=== PATIENT | female | born 1975 | race Caucasian/White ===

== ENCOUNTER 2023-11-15 13:52 | Inpatient (IN) ==
[2023-11-15 14:54] LABS: Basophils # (auto) 0.03 K/uL (0.00-0.20); Basophils % (auto) 0.4 %; Eosinophils # (auto) 0.05 K/uL (0.00-0.50); Eosinophils % (auto) 0.6 %; Hematocrit (blood only) 40.7 % (37.0-47.0); Hemoglobin 13.3 g/dl (12.0-16.0); Immature Granulocytes # (auto) 0.04 K/uL (0.01-0.20); Immature Granulocytes % (auto) 0.5 %; Lymphocytes # (auto) 1.21 K/uL (1.20-3.40); Lymphocytes % (auto) 14.8 %; Mean Corpuscular Hemoglobin 27.9 pg (25.0-34.0); Mean Corpuscular Hgb Conc 32.7 g/dL (32.0-36.0); Mean Corpuscular Volume 85.5 fL (80.0-100.0); Mean Platelet Volume 10.2 fL (9.4-12.4); Monocytes # (auto) 0.46 K/uL (0.11-0.59); Monocytes % (auto) 5.6 %; Neutrophils # (auto) 6.37 K/uL (1.40-6.50); Neutrophils % (auto) 78.1 %; Platelet Count 241 K/uL (130-400); RDW Coefficient of Variation 13.5 % (11.5-14.5); RDW Standard Deviation 42.1 fL (36.4-46.3); Red Blood Count 4.76 M/uL (4.20-5.40); White Blood Count 8.16 K/ul (4.8-10.8)
[2023-11-15 15:04] LABS: BUN Creatinine Ratio 14.8 (10-20); Calcium 9.2 mg/dl (8.6-10.3); Creatinine Clr Calc Pharmacy 151.4 ml/min; Potassium 4.4 mmol/L (3.5-5.1)
[2023-11-15 15:10] LABS: Troponin I High Sensitivity 2.7 pg/ml (0-14)
[2023-11-15 15:21] LABS: Albumin Globulin Ratio 1.7 (0.9-2); Albumin Level 4.4 gm/dl (3.4-5.0); Bilirubin,Total 1.6 mg/dl (0.2-1.0); Globulin 2.6 gm/dl (2.5-4.0)
[2023-11-15 15:27] LABS: Appearance Urine Clear (Clear); Bacteria Urine Automated None Seen (None Seen); Bilirubin Urine Negative (Negative); Blood Urine Negative (Negative); Cast Urine Automated 0-2 /lpf (0-2); Color Urine Yellow; Glucose Urine UA Negative (Negative); Ketones Urine Trace (Negative); Leukocyte Esterase Urine 3+ (Negative); Nitrite Urine Negative (Negative); Protein Urine Negative (Negative); Specific Gravity Urine 1.014 (1.000-1.030); Urobilinogen Urine Negative (Negative); WBC Urine Automated 0-5 /hpf (0-5)
[2023-11-15 15:27] LABS: INR 0.9 (0.9-1.1); Partial Thromboplastin Ratio 1.2; Partial Thromboplastin Time 32 Seconds (21-31); Prothrombin Time 10.3 Seconds (9.0-12.0)
--- NOTE | 2023-11-15 15:29 | XRay Report ---
XR chest 1V not portable HISTORY: 48 years-old Female Chest pain, nonspecific COMPARISON: 08/14/2023 TECHNIQUE: Multiple axial CT images of the lumbar spine were obtained without IV contrast. A dose low ering technique was used consistent with the principals of ROSALINA. FINDINGS: Chronic bilateral L4 pars defects. Discectomy with posterior interbody rods and screw fusion at L4-L5 . The hardware appears intact. There is mild multilevel vertebral disc space narrowing with mild to m oderate spondylitic spurring and facet arthrosis. No acute fracture or subluxation. No epidural fluid collections identified by CT. Suboptimal evaluation of the central canal and neural foramen. There is heterogeneity edema within the right paraspinal structures and right psoas musculature at th e level of L4-L5. No drainable fluid collection identified. IMPRESSION: 1. No acute fracture or dislocation identified. 2. Chronic L4 pars defects with interval discectomy, posterior interbody shira and screw fusion hardwar e at L4-L5. 3. Inflammatory stranding within the right paraspinal musculature with involvement of the right psoas at the level L4-L5, likely postoperative. 4. No drainable paraspinal fluid collections or epidural collections identified. ACT 112: Negative or not required by law. The above report was generated using voice recognition software. It may contain grammatical, syntax o r spelling errors. Electronically signed by: Julito Toledo M.D. 11/15/2023 3:28 PM
[2023-11-15] MEDS: SODIUM CHLORIDE 0.9% 1,000 ML IV ONE (16:24)
--- NOTE | 2023-11-15 16:54 | Electrocardiogram Report ---
Test Reason : Blood Pressure : */* mmHG Vent. Rate : 61 BPM Atrial Rate : 61 BPM P-R Int : 144 ms QRS Dur : 90 ms QT Int : 406 ms P-R-T Axes : -11 -11 -11 degrees QTcB Int : 408 ms Normal sinus rhythm Cannot rule out Anterior infarct , age undetermined Abnormal ECG No previous ECGs available Confirmed by Ady Castrejon ([id number]) on 11/15/2023 4:54:15 PM Referred By: Confirmed By: Ady Castrejon
--- NOTE | 2023-11-15 17:08 | XRay Report ---
KUB HISTORY: Acute epigastric abdominal pain epigastric pain COMPARISON: None. FINDINGS: Nonobstructive bowel gas pattern. Surgical clips project over the abdominal left upper quad rant. Pelvic calcifications, likely phleboliths. No renal calculi. No ureteral calculi. No pneumoper itoneum or pneumatosis. No fracture. IMPRESSION: Nonobstructive bowel gas pattern. ACT 112: Negative or not required by law. The above report was generated using voice recognition software. It may contain grammatical, syntax o r spelling errors. Electronically signed by: Julito Toledo M.D. 11/15/2023 5:07 PM
--- NOTE | 2023-11-15 17:42 | Ultrasound Report ---
ABDOMINAL ULTRASOUND, RIGHT UPPER QUADRANT HISTORY: Acute right upper quadrant abdominal pain ruq epigastric pain ro ned. COMPARISON: KUB 11/15/2023 FINDINGS: Pancreas: The pancreas demonstrates a normal echotexture. Liver: Unremarkable. Gallbladder: Stone filled gallbladder with layering gallstones. Mild gallbladder distention. The gall bladder wall is upper limits of normal at 3.5 mm. Sonographic Hill's sign reported as negative. No pericholecystic fluid. CBD: 7 mm Right kidney: No hydronephrosis. IMPRESSION: Mild gallbladder distention with cholelithiasis and borderline gallbladder wall thickening. There is no pericholecystic fluid identified and the sonographic Hill sign was reported as negative. Finding s are equivocal for acute cholecystitis and could be further evaluated with nuclear medicine hepatobi liary scan. ACT 112: Negative or not required by law. Electronically signed by: Julito Toledo M.D. 11/15/2023 5:41 PM
[2023-11-15] MEDS: MoRPHine SULFATE 4 MG/ML 1 ML CARP\\VIAL IV STA (18:41)
[2023-11-15] MEDS: ONDANSETRON INJ 2 MG/ML 2 ML VIAL IV STA (18:41)
--- NOTE | 2023-11-15 20:07 | Surgery Consultation ---
Date of Consultation November 15, 2023 Assessment & Plan (1) Gallstone pancreatitis: I discussed with the treating emergency room physician and the patient is being admitted on the hospital service. From surgery perspective we recommend the following: Appears that the patient is suffering from gallstone pancreatitis Analgesics to be provided Antiemetics to be provided Patient to be hydrated with intravenous fluids Antibiotic should be initiated I think it would be acceptable for the patient to have only sips of clear liquids this evening as her pain is nearly completely resolved at the time of my exam, but she should be made n.p.o. after midnight tonight Serial labs should be followedin the morning repeat CBC, CMP, and lipase should be repeated The patient has worsening of her LFTs the patient would benefit from an MRCP to see if she has any evidence of choledocholithiasis and if this is present a GI consultation be required for potential ERCP If the patient's LFTs have normalized this may be suggestive of a passed gallstone and patient may benefit from a cholecystectomy. Timing of any surgical procedure will be dependent on how her lipase trends as we want any pancreatitis to be fully resolved prior to undergoing surgical intervention Additional recommendations will be forthcoming based on her clinical course as it unfolds History of Present Illness Reason for Consultation: Gallstone pancreatitis History of Present Illness This is a 40-year-old female who presented to the emergency department secondary to epigastric abdominal pain. The patient notes that the pain began last night and is located primarily in the epigastric region of her abdomen. Patient reports she has a history of gastric sleeve and noted that she felt that this was gas pain. She notes that the pain subsequently resolved but recurred again this morning after drinking coffee. With this pain she has not had any nausea or vomiting. She denies any fevers, shakes, or chills. I did asked the patient if she was experiencing postprandial pain over the past several weeks to months which she denied. She denies any prior surgeries other than her gastric sleeve which was performed in November 2020 at [facility]. She does note that she lost approximately 50 pounds since this procedure. Since arrival to the hospital the patient has had labs and imaging which independent reviewed. Patient did have a chest x-ray which showed no evidence of pneumonia. A gallbladder ultrasound was performed that showed mild gallbladder distention with gallstones. There is borderline gallbladder wall thickening but no pericholecystic fluid was noted. The interpreting radiologist felt that these findings were equivocal for acute cholecystitis. KUB was performed that showed no evidence of bowel obstruction. Labs included CBC were white blood cell count, hemoglobin, hematocrit, and platelet count were normal. Chemistry profile showed sodium and potassium as well as the BUN and creatinine were normal. Patient's total bilirubin is elevated at 1.6. Her transaminases were also elevated with an AST and ALT of 170 and 143 respectively. Her alkaline phosphatase was normal. Lipase was elevated at 1952. Urinalysis showed 3+ leukocyte Estrace but was otherwise not indicative of infection. Coagulation studies were noted to be normal. At the time my interview she was resting comfortably in bed and she was in no distress. Allergies Allergy/AdvReac Type Severity Reaction Status Date / Time fluconazole [From Diflucan] Allergy Unknown swelling Verified 11/15/23 19:22 ibuprofen Allergy Unknown swelling Verified 11/15/23 19:22 Home Medications Medication Instructions Recorded Confirmed Type multivitamin 1 tab PO DAILY 05/01/20 11/15/23 History acetaminophen 500 mg tablet 1,000 mg PO QID PRN Fever Or Pain 10/29/23 11/15/23 History (Tylenol Extra Strength) L.acid,par,plant,rham-B.anim,bif,brev,inf,long 1 cap PO DAILY 11/15/23 11/15/23 History 30 billion cell capsule (Probiotic Digestive Health) diphenhydramine 25 1 tab PO HS PRN Sleep 11/15/23 11/15/23 History mg-acetaminophen 500 mg tablet (Tylenol PM Extra Strength) esomeprazole magnesium 20 mg 20 mg PO BID PRN Heartburn 11/15/23 11/15/23 History capsule,delayed release (Nexium) Patient History Medical History Sleep apnea resolved after surgery Vulvar boil Surgical History H/O gastric sleeve Hx of tonsillectomy H/O wisdom tooth extraction Family History Mother Breast cancer, Onset Age: 70 stage 1 Hypertension Endometriosis Father Hypertension Grandmother (Maternal) Hypertension Multiple myeloma Grandfather (Maternal) Melanoma Lymphoma Hypertension Grandmother (Paternal) Diabetes Denies family history of Ovarian cancer Prostate cancer Colorectal cancer Social History Smoking Status: Former smoker Do You Dip or Chew Tobacco: No; Hx Alcohol Use: Yes Hx Substance Use: No Preferred Language: Maltese Feels Safe at Home: Yes caffeine: Yes Dental Care, Regularly: Yes Physical Activity Frequency: 1-2 Times per Week Seatbelt Use: always Sunscreen Use: Yes Review of Systems Review of Systems: All systems reviewed & are unremarkable except as noted in HPI & below Physical Exam Constitutional: WD/WN, vitals as above Eyes: + anicteric sclerae ENMT: Ears: no hearing impairment and no external ear abnormality No sublingual jaundice noted Neck: trachea midline Respiratory: normal respiratory effort; no respiratory distress and no labored breathing Cardiovascular: Rate/Rhythm: regular rate and regular rhythm Gastrointestinal (Abdomen): At the time of my exam the patient's abdomen was soft without distention. There is no rebound tenderness or guarding. There is no abdominal rigidity. Patient did have some slight tenderness to palpation epigastric area (this was with deep palpation) Musculoskeletal: No calf tenderness Skin: no jaundice Neurologic: moves all extremities Psychiatric: A+Ox3, euthymic affect Results & Data Vital Signs (Past 12 Hours) Vital Signs Temp Pulse Pulse Resp BP BP Pulse Ox 11/15/23 17:00 83 100 11/15/23 16:36 100 11/15/23 16:25 171/95 H 11/15/23 15:49 99 11/15/23 15:49 75 15 159/94 H 99 11/15/23 15:39 76 16 98 11/15/23 15:21 71 15 97 11/15/23 15:21 61 11/15/23 15:12 159/94 H 11/15/23 14:06 36.6 C 73 18 182/115 H 98 O2 Del Method 11/15/23 17:00 Room Air 11/15/23 16:36 11/15/23 16:25 11/15/23 15:49 Room Air 11/15/23 15:49 Room Air 11/15/23 15:39 11/15/23 15:21 11/15/23 15:21 11/15/23 15:12 11/15/23 14:06 Room Air PG Care Time/CCT Total # of Minutes Spent Total Time Spent with Patient: Total time spent is greater than 50% in coordination of care (as documented) at patient's floor/unit and/or counseling patient: Coding Level of Care Code 33505 IN/OBS CONSULT LVL 5,80M Diagnoses Gallstone pancreatitis K85.10
--- NOTE | 2023-11-15 20:16 | History & Physical Report ---
Date of Service November 15, 2023 Assessment & Plan (1) Gallstone pancreatitis: (2) Depression with anxiety: (3) GERD (gastroesophageal reflux disease): (4) H/O gastric sleeve: Plan Gallstone pancreatitis- Total bilirubin 1.6 AST 170 ALT 143 Lipase 1951 KUB with nonobstructive bowel gas pattern Gallbladder ultrasound is equivocal for acute cholecystitis, with recommendation for ordering a HIDA scan Patient has been assessed by general surgery, and request that patient be admitted to the hospital medicine service for further workup Order repeat laboratories for the a.m.: CBC with differential, chemistry profile and lipase Order HIDA scan N.p.o. after midnight Patient received normal saline 1 L bolus in the ED Placed on NSS at 60 mL/h x 1 L Zosyn 4.5 g IV every 8 hours Pantoprazole 40 mg IV daily with first dose now Morphine sulfate 2 mg IV every 3 hours as needed for moderate pain Morphine sulfate 4 mg IV every 3 hours as needed for severe pain Consult to general surgery has already been placed, and patient has been seen by them in the ED History of Present Illness Chief Complaint: The patient presents to the emergency department with complaint of epigastric pain that began last evening, with increased gas and belching. She reports that the pain went away last evening, but recurred this morning, did not improve with increasing dose of Nexium and adding Pepcid, and due to persistence of symptoms, came to the ED for assessment. Primary Care Provider: Bushra Ortega MD The patient is a 48-year-old female with a past medical history including dysfunctional uterine bleeding, depression with anxiety, thyroid cyst, arthritis, obesity, anxiety, and history of gastric sleeve at [facility]. She presents to the emergency department with symptoms as noted above. Upon questioning, she reports that her urine has been more concentrated, and that her stool became ccie in color this morning. She reports that in the emergency department, she has not required pain medications, and her pain has resolved at this time. She had no associated nausea or vomiting. Allergies Allergy/AdvReac Type Severity Reaction Status Date / Time fluconazole [From Diflucan] Allergy Unknown swelling Verified 11/15/23 19:22 ibuprofen Allergy Unknown swelling Verified 11/15/23 19:22 Home Medications Medication Instructions Recorded Confirmed Type multivitamin 1 tab PO DAILY 05/01/20 11/15/23 History acetaminophen 500 mg tablet 1,000 mg PO QID PRN Fever Or Pain 10/29/23 11/15/23 History (Tylenol Extra Strength) L.acid,par,plant,rham-B.anim,bif,brev,inf,long 1 cap PO DAILY 11/15/23 11/15/23 History 30 billion cell capsule (Probiotic Digestive Health) diphenhydramine 25 1 tab PO HS PRN Sleep 11/15/23 11/15/23 History mg-acetaminophen 500 mg tablet (Tylenol PM Extra Strength) esomeprazole magnesium 20 mg 20 mg PO BID PRN Heartburn 11/15/23 11/15/23 History capsule,delayed release (Nexium) Past Med/Surg History Problem List (Updated 11/15/23 @ 21:55 by Anthony Villanueva MD) H/O gastric sleeve GERD (gastroesophageal reflux disease) Gallstone pancreatitis (Acute) DUB (dysfunctional uterine bleeding) Depression with anxiety Thyroid cyst Arthritis Low back pain Obesity Anxiety Medical History Sleep apnea resolved after surgery Vulvar boil Surgical History H/O gastric sleeve Hx of tonsillectomy H/O wisdom tooth extraction Family History Mother Breast cancer, Onset Age: 70 stage 1 Hypertension Endometriosis Father Hypertension Grandmother (Maternal) Hypertension Multiple myeloma Grandfather (Maternal) Melanoma Lymphoma Hypertension Grandmother (Paternal) Diabetes Denies family history of Ovarian cancer Prostate cancer Colorectal cancer Social History Smoking Status: Former smoker Do You Dip or Chew Tobacco: No; Hx Alcohol Use: Yes Hx Substance Use: No Preferred Language: Uzbek Feels Safe at Home: Yes caffeine: Yes Dental Care, Regularly: Yes Physical Activity Frequency: 1-2 Times per Week Seatbelt Use: always Sunscreen Use: Yes Review of Systems Review of Systems: The patient denies chest pain, palpitations, shortness of breath, dyspnea on exertion, cough, lower extremity swelling, sore throat, fevers, chills, sweats, weight change, fatigue, nausea, vomiting, blood in urine or stool, dysuria, urinary frequency or urgency, lightheadedness, dizziness, headache, memory loss, loss of consciousness, rash, abnormal bruising or bleeding, imbalance, focal or generalized weakness, numbness or tingling in arms or legs, generalized arthralgias or myalgias, back or neck pain, or night sweats. The review of systems is otherwise negative other than for that already noted above, and at least 10 systems have been reviewed. Physical Exam Physical Exam: The patient is awake, alert and oriented 3, well developed and well nourished, normocephalic and atraumatic, lying in bed and in no acute distress. HEENT--PERRL, EOMI, mucous membranes and oropharynx mildly dry. Neck--supple. No JVD. No bruits. Thyroid normal, trachea midline, no adenopathy. Heart--normal S1 and S2. No murmurs, rubs or gallops. Lungs--clear bilaterally, no respiratory distress, no accessory muscle use. Abdomen--normal bowel sounds and soft. Nontender. Nondistended, no hernias or ma sses, no organomegaly. Extremities--no cyanosis or clubbing. No edema. There are good distal pulses b/l. Dermatologic--normal skin turgor, normal color, no abnormal lymph nodes, no rash. Neurologic--cranial nerves II through XII grossly intact. Rheumatologic--normal range of motion. Psychiatric--normal affect. Results & Data Results & Data Vital Signs (Past 12 Hours) Vital Signs Temp Pulse Pulse Resp BP BP Pulse Ox 11/15/23 17:00 83 100 11/15/23 16:36 100 11/15/23 16:25 171/95 H 11/15/23 15:49 99 11/15/23 15:49 75 15 159/94 H 99 11/15/23 15:39 76 16 98 11/15/23 15:21 71 15 97 11/15/23 15:21 61 11/15/23 15:12 159/94 H 11/15/23 14:06 36.6 C 73 18 182/115 H 98 O2 Del Method 11/15/23 17:00 Room Air 11/15/23 16:36 11/15/23 16:25 11/15/23 15:49 Room Air 11/15/23 15:49 Room Air 11/15/23 15:39 11/15/23 15:21 11/15/23 15:21 11/15/23 15:12 11/15/23 14:06 Room Air Laboratory Results Laboratory Results WBC 8.16 K/ul (4.8-10.8) 11/15/23 14:30 RBC 4.76 M/uL (4.20-5.40) 11/15/23 14:30 Hgb 13.3 g/dl (12.0-16.0) 11/15/23 14:30 Hct 40.7 % (37.0-47.0) 11/15/23 14:30 MCV 85.5 fL (80.0-100.0) 11/15/23 14:30 MCH 27.9 pg (25.0-34.0) 11/15/23 14:30 MCHC 32.7 g/dL (32.0-36.0) 11/15/23 14:30 RDW Std Deviation 42.1 fL (36.4-46.3) 11/15/23 14:30 RDW Coeff of Kerri 13.5 % (11.5-14.5) 11/15/23 14:30 Plt Count 241 K/uL (130-400) 11/15/23 14:30 MPV 10.2 fL (9.4-12.4) 11/15/23 14:30 Immature Gran % (Auto) 0.5 % 11/15/23 14:30 Neut % (Auto) 78.1 % 11/15/23 14:30 Lymph % (Auto) 14.8 % 11/15/23 14:30 Payette % (Auto) 5.6 % 11/15/23 14:30 Eos % (Auto) 0.6 % 11/15/23 14:30 Baso % (Auto) 0.4 % 11/15/23 14:30 Neut # (Auto) 6.37 K/uL (1.40-6.50) 11/15/23 14:30 Lymph # (Auto) 1.21 K/uL (1.20-3.40) 11/15/23 14:30 Payette # (Auto) 0.46 K/uL (0.11-0.59) 11/15/23 14:30 Eos # (Auto) 0.05 K/uL (0.00-0.50) 11/15/23 14:30 Baso # (Auto) 0.03 K/uL (0.00-0.20) 11/15/23 14:30 Immature Gran # (Auto) 0.04 K/uL (0.01-0.20) 11/15/23 14:30 PT 10.3 Seconds (9.0-12.0) 11/15/23 14:30 INR 0.9 (0.9-1.1) 11/15/23 14:30 APTT 32 Seconds (21-31) H 11/15/23 14:30 PTT Ratio 1.2 11/15/23 14:30 Sodium 138 mmol/L (136-145) 11/15/23 14:30 Potassium 4.4 mmol/L (3.5-5.1) 11/15/23 14:30 Chloride 105 mmol/L (98-107) 11/15/23 14:30 Carbon Dioxide 27 mmol/L (21-32) 11/15/23 14:30 Anion Gap 6 (3-11) 11/15/23 14:30 BUN 9 mg/dl (6-23) 11/15/23 14:30 Creatinine 0.61 mg/dl (0.6-1.2) 11/15/23 14:30 Est Cr Clr Drug Dosing 151.4 ml/min 11/15/23 14:30 eGFR 110.21 11/15/23 14:30 BUN/Creatinine Ratio 14.8 (10-20) 11/15/23 14:30 Glucose 96 mg/dl (70-99(Fasting)) 11/15/23 14:30 Calcium 9.2 mg/dl (8.6-10.3) 11/15/23 14:30 Total Bilirubin 1.6 mg/dl (0.2-1.0) H 11/15/23 14:30 AST 170 U/L (13-39) H 11/15/23 14:30 ALT 143 U/L (7-52) H 11/15/23 14:30 Alkaline Phosphatase 84 U/L (34-104) 11/15/23 14:30 Troponin I High Sens 2.7 pg/ml (0-14) 11/15/23 14:30 Total Protein 7.0 gm/dl (6.0-8.3) 11/15/23 14:30 Albumin 4.4 gm/dl (3.4-5.0) 11/15/23 14:30 Globulin 2.6 gm/dl (2.5-4.0) 11/15/23 14:30 Albumin/Globulin Ratio 1.7 (0.9-2) 11/15/23 14:30 Lipase 1952 U/L (11-82) H 11/15/23 14:30 Urine Color Yellow 11/15/23 15:14 Urine Appearance Clear (Clear) 11/15/23 15:14 Urine pH 6.0 (4.5-7.5) 11/15/23 15:14 Ur Specific Martin 1.014 (1.000-1.030) 11/15/23 15:14 Urine Protein Negative (Negative) 11/15/23 15:14 Urine Glucose (UA) Negative (Negative) 11/15/23 15:14 Urine Ketones Trace (Negative) H 11/15/23 15:14 Urine Blood Negative (Negative) 11/15/23 15:14 Urine Nitrite Negative (Negative) 11/15/23 15:14 Urine Bilirubin Negative (Negative) 11/15/23 15:14 Urine Urobilinogen Negative (Negative) 11/15/23 15:14 Ur Leukocyte Esterase 3+ (Negative) H 11/15/23 15:14 Urine WBC (Auto) 0-5 /hpf (0-5) 11/15/23 15:14 Urine RBC (Auto) 3-5 /hpf (0-2) H 11/15/23 15:14 U Hyaline Cast (Auto) 0-2 /lpf (0-2) 11/15/23 15:14 U Epithel Cells (Auto) 6-10 /hpf (0-2) H 11/15/23 15:14 Urine Bacteria (Auto) None Seen (None Seen) 11/15/23 15:14 Impressions Chest X-Ray 11/15/23 14:10 XR chest 1V not portable HISTORY: 48 years-old Female Chest pain, nonspecific COMPARISON: 08/14/2023 TECHNIQUE: Multiple axial CT images of the lumbar spine were obtained without IV contrast. A dose lowering technique was used consistent with the principals of ROSALINA. FINDINGS: Chronic bilateral L4 pars defects. Discectomy with posterior interbody rods and screw fusion at L4-L5. The hardware appears intact. There is mild multilevel vertebral disc space narrowing with mild to moderate spondylitic spurring and facet arthrosis. No acute fracture or subluxation. No epidural fluid collections identified by CT. Suboptimal evaluation of the central canal and neural foramen. There is heterogeneity edema within the right paraspinal structures and right psoas musculature at the level of L4-L5. No drainable fluid collection identified. IMPRESSION: 1. No acute fracture or dislocation identified. 2. Chronic L4 pars defects with interval discectomy, posterior interbody shira and screw fusion hardware at L4-L5. 3. Inflammatory stranding within the right paraspinal musculature with involvement of the right psoas at the level L4-L5, likely postoperative. 4. No drainable paraspinal fluid collections or epidural collections identified. ACT 112: Negative or not required by law. The above report was generated using voice recognition software. It may contain grammatical, syntax or spelling errors. Electronically signed by: Julito Toledo M.D. 11/15/2023 3:28 PM Gallbladder Ultrasound 11/15/23 16:07 ABDOMINAL ULTRASOUND, RIGHT UPPER QUADRANT HISTORY: Acute right upper quadrant abdominal pain ruq epigastric pain ro ned. COMPARISON: KUB 11/15/2023 FINDINGS: Pancreas: The pancreas demonstrates a normal echotexture. Liver: Unremarkable. Gallbladder: Stone filled gallbladder with layering gallstones. Mild gallbladder distention. The gallbladder wall is upper limits of normal at 3.5 mm. Sonographic Hill's sign reported as negative. No pericholecystic fluid. CBD: 7 mm Right kidney: No hydronephrosis. IMPRESSION: Mild gallbladder distention with cholelithiasis and borderline gallbladder wall thickening. There is no pericholecystic fluid identified and the sonographic Hill sign was reported as negative. Findings are equivocal for acute cholecystitis and could be further evaluated with nuclear medicine hepatobiliary scan. ACT 112: Negative or not required by law. Electronically signed by: Julito Toledo M.D. 11/15/2023 5:41 PM KUB X-Ray 11/15/23 16:07 KUB HISTORY: Acute epigastric abdominal pain epigastric pain COMPARISON: None. FINDINGS: Nonobstructive bowel gas pattern. Surgical clips project over the abdominal left upper quadrant. Pelvic calcifications, likely phleboliths. No renal calculi. No ureteral calculi. No pneumoperitoneum or pneumatosis. No fracture. IMPRESSION: Nonobstructive bowel gas pattern. ACT 112: Negative or not required by law. The above report was generated using voice recognition software. It may contain grammatical, syntax or spelling errors. Electronically signed by: Julito Toledo M.D. 11/15/2023 5:07 PM Code Status & VTE Plan Code Status Full code VTE Prophylaxis Plan VTE Prophylaxis will be ordered: Yes PG Care Time/CCT Total # of Minutes Spent Total Time Spent with Patient: Total time spent is greater than 50% in coordination of care (as documented) at patient's floor/unit and/or counseling patient: Coding Level of Care Code 70004 INT INP/OBS CARE 2/55MIN Diagnoses Gallstone pancreatitis K85.10 Depression with anxiety F41.8 GERD (gastroesophageal reflux disease) K21.9 H/O gastric sleeve Z90.3
[2023-11-15] MEDS: PANTOprazole 40 MG in SYRINGE 0 ML IV ONE (20:42)
[2023-11-15] MEDS: PIPERACILLIN/TAZOBACTAM 4.5 GM/100 ML BAG IV ONE (20:46)
--- NOTE | 2023-11-15 20:52 | Emergency Department Note ---
History of Present Illness General Chief Complaint: Abdominal Pain Stated Complaint: UPPER ABD PAIN RADIATING TO BACK Time Seen by Provider: 11/15/23 15:49 History of Present Illness Provider Complaint: abdominal pain Onset (ago): 1 day(s) Pain Consistency: intermittent Location: epigastric Radiation: back Severity: moderate Maximum Pain Intensity: 8 Current Pain Intensity: 8 Quality: + stabbing and + sharp Relieved By: + medication (Nexium) Exacerbated By: + eating (Eating greasy fatty foods.) Context: no foreign travel, no recent antibiotic use, no recent surgery/procedure or no recent injury Associated Symptoms: + nausea; no vomiting, no diarrhea, no fever, no chills, no constipation, no dysuria, no hematemesis, no hematochezia, no melena, no hematuria, no anorexia, no syncope, no headache, no neck pain, no back pain, no chest pain and no breathing difficulty Home Medications Medication Instructions Recorded Confirmed Type multivitamin 1 tab PO DAILY 05/01/20 11/15/23 History acetaminophen 500 mg tablet 1,000 mg PO QID PRN Fever Or Pain 10/29/23 11/15/23 History (Tylenol Extra Strength) L.acid,par,plant,rham-B.anim,bif,brev,inf,long 1 cap PO DAILY 11/15/23 11/15/23 History 30 billion cell capsule (Probiotic Digestive Health) diphenhydramine 25 1 tab PO HS PRN Sleep 11/15/23 11/15/23 History mg-acetaminophen 500 mg tablet (Tylenol PM Extra Strength) esomeprazole magnesium 20 mg 20 mg PO BID PRN Heartburn 11/15/23 11/15/23 History capsule,delayed release (Nexium) Allergies Allergy/AdvReac Type Severity Reaction Status Date / Time fluconazole [From Diflucan] Allergy Unknown swelling Verified 11/15/23 19:22 ibuprofen Allergy Unknown swelling Verified 11/15/23 19:22 Past Med/Surg History Problem List (Updated 11/15/23 @ 20:52 by Breezy Herring MD) Gallstone pancreatitis (Acute) DUB (dysfunctional uterine bleeding) Depression with anxiety Thyroid cyst Arthritis Low back pain Obesity Anxiety Medical History Sleep apnea resolved after surgery Vulvar boil Surgical History H/O gastric sleeve Hx of tonsillectomy H/O wisdom tooth extraction Family History Mother Breast cancer, Onset Age: 70 stage 1 Hypertension Endometriosis Father Hypertension Grandmother (Maternal) Hypertension Multiple myeloma Grandfather (Maternal) Melanoma Lymphoma Hypertension Grandmother (Paternal) Diabetes Denies family history of Ovarian cancer Prostate cancer Colorectal cancer Social History Smoking Status: Former smoker Do You Dip or Chew Tobacco: No; Hx Alcohol Use: Yes Hx Substance Use: No Preferred Language: Moroccan Feels Safe at Home: Yes caffeine: Yes Dental Care, Regularly: Yes Physical Activity Frequency: 1-2 Times per Week Seatbelt Use: always Sunscreen Use: Yes Physical Exam 2 Vital Signs: Vital Signs - 24 hr 11/15/23 14:06 11/15/23 15:12 11/15/23 15:21 Temperature 36.6 C Temperature Source Temporal Artery Sc an Pulse Rate 73 61 Pulse Rate [Apical ] Pulse Rate from Sp O2 Sensor Pulse Rhythm Regular Respiratory Rate 18 Respiratory Effort / Characteristics Non-Labored Sponta neous Respiratory Depth Normal Respiratory Patter n Regular Blood Pressure 182/115 H 159/94 H Blood Pressure [Le ft Arm] Blood Pressure Daniella n 137 124 Blood Pressure Daniella n [Left Arm] Blood Pressure Pos ition Sitting Pulse Oximetry 98 Oxygen Delivery Me thod Room Air Sepsis Recent Feve r Within 48 Hours No Sepsis New/Unexpla ined Change in Men russell Status No Sepsis Action Take n by Nursing No Action Required 11/15/23 15:21 11/15/23 15:39 11/15/23 15:49 Temperature Temperature Source Pulse Rate 71 76 Pulse Rate [Apical ] 75 Pulse Rate from Sp O2 Sensor 70 78 Pulse Rhythm Respiratory Rate 15 16 15 Respiratory Effort / Characteristics Non-Labored Sponta neous Respiratory Depth Normal Respiratory Patter n Blood Pressure Blood Pressure [Le ft Arm] 159/94 H Blood Pressure Daniella n Blood Pressure Daniella n [Left Arm] 115 Blood Pressure Pos ition Pulse Oximetry 97 98 99 Oxygen Delivery Me thod Room Air Sepsis Recent Feve r Within 48 Hours Sepsis New/Unexpla ined Change in Men russell Status Sepsis Action Take n by Nursing 11/15/23 15:49 11/15/23 16:25 11/15/23 16:36 Temperature Temperature Source Pulse Rate Pulse Rate [Apical ] Pulse Rate from Sp O2 Sensor 68 Pulse Rhythm Respiratory Rate Respiratory Effort / Characteristics Respiratory Depth Respiratory Patter n Blood Pressure 171/95 H Blood Pressure [Le ft Arm] Blood Pressure Daniella n 125 Blood Pressure Daniella n [Left Arm] Blood Pressure Pos ition Pulse Oximetry 99 100 Oxygen Delivery Me thod Room Air Sepsis Recent Feve r Within 48 Hours Sepsis New/Unexpla ined Change in Men russell Status Sepsis Action Take n by Nursing 11/15/23 17:00 11/15/23 20:40 Temperature Temperature Source Pulse Rate Pulse Rate [Apical ] 83 86 Pulse Rate from Sp O2 Sensor Pulse Rhythm Respiratory Rate 17 Respiratory Effort / Characteristics Non-Labored Sponta neous Respiratory Depth Normal Respiratory Patter n Regular Blood Pressure Blood Pressure [Le ft Arm] 150/93 H Blood Pressure Daneilla n Blood Pressure Daniella n [Left Arm] 112 Blood Pressure Pos ition Pulse Oximetry 100 98 Oxygen Delivery Me thod Room Air Room Air Sepsis Recent Feve r Within 48 Hours Sepsis New/Unexpla ined Change in Men russell Status Sepsis Action Take n by Nursing Physical Exam: Physical Exam GENERAL: oriented to person, place, and time. appears well-developed and well- nourished. She does not appear distressed. HENT: Exam performed. -Head: Normocephalic and atraumatic. -Right Ear: External ear normal. No mastoid erythema -Left Ear: External ear normal. No mastoid erythema -Mouth/Throat: The oropharynx is clear and moist. No trismus in the jaw. No dental abscesses or uvula swelling. No oropharyngeal exudate or tonsillar abscesses. EYES: Conjunctivae and EOM are normal.Right eye exhibits no discharge. Left eye exhibits no discharge. No scleral icterus. NECK: Normal range of motion. Neck supple. No JVD present. No tracheal deviation and normal range of motion present. CV: Normal rate, regular rhythm, normal heart sounds and intact distal pulses. There is no peripheral edema. Palpable radial pulses bue. PULM/CHEST: Effort normal and breath sounds normal. No respiratory distress. No stridor. no wheezes.no rales. -Chest Wall: no tenderness to palpation ABD: The abdomen is soft. Bowel sounds are normal. no distension. No mass is present. There is tenderness to palpation of the right upper quadrant and epigastric area. There is no rebound, no guarding, no Hill's sign and no tenderness at McBurney's point. Rovsig negative MUSC/SKEL: Normal range of motion. There is no peripheral edema, tenderness or deformity. NEURO: Motor and sensation grossly intact. SKIN: Skin is warm and dry. not diaphoretic. PSYCH: normal mood and affect. Behavior is normal. Judgment and thought content normal. Course Course 1549: The patient was evaluated in room C3. A complete history and physical exam was performed Cardiac monitoring: An order was placed for continuous cardiac monitoring. The monitor shows a rate of 60 with sinus rhythm interpreted by sd 1838: Vital signs stable. Labs show normal white blood cell count. Hemoglobin stable. Labs are significant for total bilirubin 1.6 AST 170 ALT 143 lipase 1951. X-ray imaging shows no evidence of free air or obstructive bowel gas pattern. Ultrasound of the right upper quadrant shows a mild gallbladder distention with cholelithiasis and borderline gallbladder wall thickening but no pericholecystic fluid and sonographic Hill sign negative. Spoke with Dr. Saba general surgery. He states that he can be on consult and admit the patient to medicine and they can evaluate the patient for cholecystectomy tomorrow after HIDA scan. Medicine team will be contacted for admission. Administered Medications Discontinued Medications Sodium Chloride (Nss) 1,000 mls @ 999 mls/hr IV .Q1H1M ONE Stop: 11/15/23 17:07 Last Infusion: 11/15/23 17:57 Dose: Infused Documented By: Admin: 11/15/23 16:24 Dose: 999 mls/hr Documented By: SARWAT Pantoprazole Sodium 40 mg/ (Syringe) 10 mls @ 5 mls/min IV NOW ONE Stop: 11/15/23 20:13 Last Admin: 11/15/23 20:42 Dose: 5 mls/min Documented By: NEERAJ Piperacillin Sod/Tazobactam Sod (Zosyn) 4.5 gm in 100 mls @ 200 mls/hr IV NOW ONE; Protocol Stop: 11/15/23 20:41 Last Admin: 11/15/23 20:46 Dose: 200 mls/hr Documented By: NEERAJ Morphine Sulfate (Morphine Sulfate 4 Mg/Ml 1 Ml Carp\Vial) 4 mg IV NOW STA Stop: 11/15/23 16:08 Last Admin: 11/15/23 18:41 Dose: Not Given Documented By: NIGHAT Ondansetron HCl (Ondansetron Inj 2 Mg/Ml 2 Ml Vial) 4 mg IV NOW STA Stop: 11/15/23 16:08 Last Admin: 11/15/23 18:41 Dose: Not Given Documented By: NIGHAT Medical Decision Making Laboratory Data Attestation: I reviewed the patient's lab results. 11/15/23 14:30 11/15/23 14:30 Lab Results 11/15/23 11/15/23 Range/Units 14:30 15:14 WBC 8.16 (4.8-10.8) K/ul RBC 4.76 (4.20-5.40) M/uL Hgb 13.3 (12.0-16.0) g/dl Hct 40.7 (37.0-47.0) % MCV 85.5 (80.0-100.0) fL MCH 27.9 (25.0-34.0) pg MCHC 32.7 (32.0-36.0) g/dL RDW Std Deviation 42.1 (36.4-46.3) fL RDW Coeff of Kerri 13.5 (11.5-14.5) % Plt Count 241 (130-400) K/uL MPV 10.2 (9.4-12.4) fL Immature Gran % (Auto) 0.5 % Neut % (Auto) 78.1 % Lymph % (Auto) 14.8 % Cloud % (Auto) 5.6 % Eos % (Auto) 0.6 % Baso % (Auto) 0.4 % Neut # (Auto) 6.37 (1.40-6.50) K/uL Lymph # (Auto) 1.21 (1.20-3.40) K/uL Cloud # (Auto) 0.46 (0.11-0.59) K/uL Eos # (Auto) 0.05 (0.00-0.50) K/uL Baso # (Auto) 0.03 (0.00-0.20) K/uL Immature Gran # (Auto) 0.04 (0.01-0.20) K/uL PT 10.3 (9.0-12.0) Seconds INR 0.9 (0.9-1.1) APTT 32 H (21-31) Seconds PTT Ratio 1.2 Sodium 138 (136-145) mmol/L Potassium 4.4 (3.5-5.1) mmol/L Chloride 105 (98-107) mmol/L Carbon Dioxide 27 (21-32) mmol/L Anion Gap 6 (3-11) BUN 9 (6-23) mg/dl Creatinine 0.61 (0.6-1.2) mg/dl Est Cr Clr Drug Dosing 151.4 ml/min eGFR 110.21 BUN/Creatinine Ratio 14.8 (10-20) Glucose 96 (70-99(Fasting)) mg/dl Calcium 9.2 (8.6-10.3) mg/dl Total Bilirubin 1.6 H (0.2-1.0) mg/dl AST 170 H (13-39) U/L ALT 143 H (7-52) U/L Alkaline Phosphatase 84 (34-104) U/L Troponin I High Sens 2.7 (0-14) pg/ml Total Protein 7.0 (6.0-8.3) gm/dl Albumin 4.4 (3.4-5.0) gm/dl Globulin 2.6 (2.5-4.0) gm/dl Albumin/Globulin Ratio 1.7 (0.9-2) Lipase 1952 H (11-82) U/L Urine Color Yellow Urine Appearance Clear (Clear) Urine pH 6.0 (4.5-7.5) Ur Specific [place] 1.014 (1.000-1.030) Urine Protein Negative (Negative) Urine Glucose (UA) Negative (Negative) Urine Ketones Trace H (Negative) Urine Blood Negative (Negative) Urine Nitrite Negative (Negative) Urine Bilirubin Negative (Negative) Urine Urobilinogen Negative (Negative) Ur Leukocyte Esterase 3+ H (Negative) Urine WBC (Auto) 0-5 (0-5) /hpf Urine RBC (Auto) 3-5 H (0-2) /hpf U Hyaline Cast (Auto) 0-2 (0-2) /lpf U Epithel Cells (Auto) 6-10 H (0-2) /hpf Urine Bacteria (Auto) None Seen (None Seen) Imaging Data Attestation: I personally reviewed and interpreted this imaging study as follows: My Impression: Chest x-ray negative. Airway clear. No pneumothorax. No consolidation. No cardiomegaly or cephalization.. No free air under the diaphragm. No fractures of the skeletal structures. Radiologist's Impression: Chest X-Ray 11/15/23 14:10 XR chest 1V not portable HISTORY: 48 years-old Female Chest pain, nonspecific COMPARISON: 08/14/2023 TECHNIQUE: Multiple axial CT images of the lumbar spine were obtained without IV contrast. A dose lowering technique was used consistent with the principals of ALARA. FINDINGS: Chronic bilateral L4 pars defects. Discectomy with posterior interbody rods and screw fusion at L4-L5. The hardware appears intact. There is mild multilevel vertebral disc space narrowing with mild to moderate spondylitic spurring and facet arthrosis. No acute fracture or subluxation. No epidural fluid collections identified by CT. Suboptimal evaluation of the central canal and neural foramen. There is heterogeneity edema within the right paraspinal structures and right psoas musculature at the level of L4-L5. No drainable fluid collection identified. IMPRESSION: 1. No acute fracture or dislocation identified. 2. Chronic L4 pars defects with interval discectomy, posterior interbody shira and screw fusion hardware at L4-L5. 3. Inflammatory stranding within the right paraspinal musculature with involvement of the right psoas at the level L4-L5, likely postoperative. 4. No drainable paraspinal fluid collections or epidural collections identified. ACT 112: Negative or not required by law. The above report was generated using voice recognition software. It may contain grammatical, syntax or spelling errors. Electronically signed by: uJlito Toledo M.D. 11/15/2023 3:28 PM Gallbladder Ultrasound 11/15/23 16:07 ABDOMINAL ULTRASOUND, RIGHT UPPER QUADRANT HISTORY: Acute right upper quadrant abdominal pain ruq epigastric pain ro ned. COMPARISON: KUB 11/15/2023 FINDINGS: Pancreas: The pancreas demonstrates a normal echotexture. Liver: Unremarkable. Gallbladder: Stone filled gallbladder with layering gallstones. Mild gallbladder distention. The gallbladder wall is upper limits of normal at 3.5 mm. Sonographic Hill's sign reported as negative. No pericholecystic fluid. CBD: 7 mm Right kidney: No hydronephrosis. IMPRESSION: Mild gallbladder distention with cholelithiasis and borderline gallbladder wall thickening. There is no pericholecystic fluid identified and the sonographic Hill sign was reported as negative. Findings are equivocal for acute cholecystitis and could be further evaluated with nuclear medicine hepatobiliary scan. ACT 112: Negative or not required by law. Electronically signed by: Julito Toledo M.D. 11/15/2023 5:41 PM KUB X-Ray 11/15/23 16:07 KUB HISTORY: Acute epigastric abdominal pain epigastric pain COMPARISON: None. FINDINGS: Nonobstructive bowel gas pattern. Surgical clips project over the abdominal left upper quadrant. Pelvic calcifications, likely phleboliths. No renal calculi. No ureteral calculi. No pneumoperitoneum or pneumatosis. No fracture. IMPRESSION: Nonobstructive bowel gas pattern. ACT 112: Negative or not required by law. The above report was generated using voice recognition software. It may contain grammatical, syntax or spelling errors. Electronically signed by: Julito Toledo M.D. 11/15/2023 5:07 PM ECG Data Attestation: I personally reviewed and interpreted this ECG as follows: Indication: abdominal pain Rate (beats per minute): 61 Rhythm: normal sinus Findings: no ST depression, no ST elevation or no prolonged QT MDM Narrative 1549: The patient was evaluated in room C3. A complete history and physical exam was performed Cardiac monitoring: An order was placed for continuous cardiac monitoring. The monitor shows a rate of 60 with sinus rhythm interpreted by me 1838: Vital signs stable. Labs show normal white blood cell count. Hemoglobin stable. Labs are significant for total bilirubin 1.6 AST 170 ALT 143 lipase 1952. X-ray imaging shows no evidence of free air or obstructive bowel gas pattern. Ultrasound of the right upper quadrant shows a mild gallbladder distention with cholelithiasis and borderline gallbladder wall thickening but no pericholecystic fluid and sonographic Hill sign negative. Spoke with Dr. Saba general surgery. He states that he can be on consult and admit the patient to medicine and they can evaluate the patient for cholecystectomy tomorrow after HIDA scan. Medicine team will be contacted for admission. Impression & Plan Gallstone pancreatitis Discharge Plan Visit Data Chief Complaint: Abdominal Pain Stated Complaint: UPPER ABD PAIN RADIATING TO BACK ED Provider: Breezy Herring Discharge Problem: Gallstone pancreatitis Patient Disposition: Admitted As Inpatient Forms Stand Alone Forms: [facility] Prescriptions Prescriptions: No Action multivitamin Tablet 1 tab PO DAILY acetaminophen [Tylenol Extra Strength] 500 mg tablet 1,000 mg PO QID PRN (Reason: Fever Or Pain) esomeprazole magnesium [Nexium] 20 mg Capsule,Delayed Release(Dr/Ec) 20 mg PO BID PRN (Reason: Heartburn) Probiotic Digestive Health 30 billion cell Capsule 1 cap PO DAILY diphenhydramine-acetaminophen [Tylenol PM Extra Strength] 25-500 mg Tablet 1 tab PO HS PRN (Reason: Sleep) Referrals Referrals: Bushra Ortega MD [Primary Care Provider] -
[2023-11-15] MEDS ORDERED: MoRPHine SULFATE 4 MG/ML 1 ML CARP\\VIAL IV PRN (21:36)
[2023-11-15] MEDS: SODIUM CHLORIDE 0.9% 1,000 ML IV SCH (22:01)
[2023-11-15] MEDS: LORazepam 2 MG/1 ML VIAL IV STA (22:21)
[2023-11-16] MEDS: PIPERACILLIN/TAZOBACTAM 4.5 GM/100 ML BAG IV SCH (01:30)
[2023-11-16] MEDS: MoRPHine SULFATE 2 MG/ML CARP IV PRN (03:27)
[2023-11-16 06:55] LABS: Basophils # (auto) 0.01 K/uL (0.00-0.20); Basophils % (auto) 0.1 %; Eosinophils # (auto) 0.11 K/uL (0.00-0.50); Eosinophils % (auto) 1.5 %; Hematocrit (blood only) 36.1 % (37.0-47.0); Hemoglobin 12.2 g/dl (12.0-16.0); Immature Granulocytes # (auto) 0.04 K/uL (0.01-0.20); Immature Granulocytes % (auto) 0.5 %; Lymphocytes # (auto) 2.08 K/uL (1.20-3.40); Lymphocytes % (auto) 27.6 %; Mean Corpuscular Hemoglobin 28.2 pg (25.0-34.0); Mean Corpuscular Hgb Conc 33.8 g/dL (32.0-36.0); Mean Corpuscular Volume 83.6 fL (80.0-100.0); Mean Platelet Volume 10.3 fL (9.4-12.4); Monocytes # (auto) 0.53 K/uL (0.11-0.59); Neutrophils # (auto) 4.76 K/uL (1.40-6.50); Neutrophils % (auto) 63.3 %; Platelet Count 203 K/uL (130-400); RDW Coefficient of Variation 13.6 % (11.5-14.5); RDW Standard Deviation 42.1 fL (36.4-46.3); Red Blood Count 4.32 M/uL (4.20-5.40); White Blood Count 7.53 K/ul (4.8-10.8)
[2023-11-16 07:15] LABS: Albumin Globulin Ratio 1.7 (0.9-2); Albumin Level 3.8 gm/dl (3.4-5.0); BUN Creatinine Ratio 10.8 (10-20); Calcium 8.7 mg/dl (8.6-10.3); Creatinine Clr Calc Pharmacy 142.6 ml/min; Globulin 2.3 gm/dl (2.5-4.0); Magnesium 1.8 mg/dl (1.7-2.4); Potassium 3.9 mmol/L (3.5-5.1); Total Protein 6.1 gm/dl (6.0-8.3)
--- NOTE | 2023-11-16 11:32 | Nuclear Medicine Report ---
NM hepatobiliary EF CLINICAL HISTORY: 48 years-old Female with gallstone pancreatitis. TECHNIQUE: Following the intravenous administration of 5.1 mCi of technetium-99m Choletec, sequentia l abdominal images were obtained. In order to evaluate the contractile response of the gallbladder, 2.7 mcg of Kinevac was administered by slow intravenous infusion over 30 min starting approximately 6 0 min after the administration of the radiopharmaceutical. Sequential imaging was continued for 45 m in after the start of the Kinevac infusion. COMPARISON: US 11/15/23 FINDINGS: There is prompt, uniform accumulation of the tracer by the liver. There is normal filling of the int rahepatic ducts, common bile duct and gallbladder and normal excretion of the tracer into the duodenu m. There is normal contraction of the gallbladder. The calculated gallbladder ejection fraction is 81% (normal >40%). There is no significant enterogastric reflux. IMPRESSION: 1. Normal contractile response of the gallbladder to Kinevac infusion. 2. Normal biliary imaging study. ACT 112: Negative or not required by law. The above report was generated using voice recognition software. It may contain grammatical, syntax o r spelling errors. Electronically signed by: Julito Toledo M.D. 11/16/2023 11:30 AM
[2023-11-16] MEDS: PANTOprazole 40 MG in SYRINGE 0 ML IV SCH (11:33)
[2023-11-16] MEDS: SODIUM CHLORIDE 0.9% IV ONE (11:33)
[2023-11-16] MEDS: SINCALIDE IV ONE (11:33)
--- NOTE | 2023-11-16 11:59 | Hospitalist Progress Note ---
Date of Service November 16, 2023 Assessment & Plan (1) Gallstone pancreatitis: Plan: Presented with epigastric pain with increased gas and belching. PMH of gastric sleeve. - Elevated LFTs and lipase on admission significant for the following: Total bilirubin 1.6, AST 170, ALT 143, Lipase 1952 - Repeat LFTs and lipase downtrended: Total bilirubin 1.0, AST 120, ALT 163, lipase 239 - KUB with nonobstructive bowel gas pattern - Gallbladder ultrasound is equivocal for acute cholecystitis, with recommendation for ordering a HIDA scan - HIDA revealed normal contractile response of the gallbladder, normal biliary imaging study - General surgery consulted > Lap ned on 11/[address] Saba > Clear liquid diet - Continue Zosyn, last dose 11/25 - Pain regimen: Tylenol PRN for mild pain, oxycodone 5 mg PRN for moderate pain, oxycodone 10 mg PRN for severe pain (2) GERD (gastroesophageal reflux disease): Plan: Takes Nexium 20 mg twice daily as needed at home Continue Protonix 40 mg daily while hospitalized (3) H/O gastric sleeve: Plan Updated multiple family members at bedside VTE PPx: SCDs CODE STATUS: Full code Admission and Anticipated Discharge Date Admission Date: November 15, 2023 Subjective Patient seen and evaluated at bedside with multiple family members present. She reports feeling well this morning, denies abdominal pain, nausea, or vomiting. She did have a bowel movement this morning, which she described as loose consistency. She reported that it was very dark in color, but notes that she took Pepto yesterday prior to coming to the hospital. No other signs to indicate GI bleeding. Surgery has not evaluated the patient yet this morning, so plan is unclear at this time. No additional complaints or concerns at this time. Physical Exam Physical Exam: General: No acute distress, nondiaphoretic, well-developed, well-nourished. Skin: The skin was without rashes, erythema, edema, or bruising. Cardiac: Regular rate and rhythm without murmurs gallops or rubs. Pulm: Clear to auscultation bilaterally without wheezes, rales or rhonchi. No respiratory distress. 98% on room air. Abdominal: Soft, nontender, nondistended. Bowel sounds present. Neuro: A&O x3. No focal neurological deficits. Results & Data Results & Data Vital Signs (Past 12 Hours) Vital Signs Temp Pulse Resp BP Pulse Ox O2 Del Method 11/16/23 07:38 97.7 F 95 H 18 175/98 H 98 Room Air 11/16/23 03:28 88 162/85 H 95 Room Air Laboratory Results Reviewed CBC Reviewed CMP Diagnostic Findings Hepatobiliary Scan Nuclear Medicine 11/16/23 20:15 NM hepatobiliary EF CLINICAL HISTORY: 48 years-old Female with gallstone pancreatitis. TECHNIQUE: Following the intravenous administration of 5.1 mCi of technetium- 99m Choletec, sequential abdominal images were obtained. In order to evaluate the contractile response of the gallbladder, 2.7 mcg of Kinevac was administered by slow intravenous infusion over 30 min starting approximately 60 min after the administration of the radiopharmaceutical. Sequential imaging was continued for 45 min after the start of the Kinevac infusion. COMPARISON: US 11/15/23 FINDINGS: There is prompt, uniform accumulation of the tracer by the liver. There is normal filling of the intrahepatic ducts, common bile duct and gallbladder and normal excretion of the tracer into the duodenum. There is normal contraction of the gallbladder. The calculated gallbladder ejection fraction is 81% (normal >40%). There is no significant enterogastric reflux. IMPRESSION: 1. Normal contractile response of the gallbladder to Kinevac infusion. 2. Normal biliary imaging study. ACT 112: Negative or not required by law. The above report was generated using voice recognition software. It may contain grammatical, syntax or spelling errors. Electronically signed by: Julito Toledo M.D. 11/16/2023 11:30 AM PG Care Time/CCT Total # of Minutes Spent Total Time Spent with Patient: Total time spent is greater than 50% in coordination of care (as documented) at patient's floor/unit and/or counseling patient: Coding Level of Care Code 16527 SUB INP/OBS CARE 3/50MIN Diagnoses Gallstone pancreatitis K85.10 GERD (gastroesophageal reflux disease) K21.9 H/O gastric sleeve Z90.3
--- NOTE | 2023-11-16 13:59 | Surgery Progress Note ---
Date of Service November 16, 2023 Assessment & Plan (1) Gallstone pancreatitis: Plan: Pt with PMH of gastric sleeve here with concern for gallstone pancreatitis Blood work today improving regarding LFTs and lipase---Tb 1(1.6), AST 120(170), ALT 163(143), Alp 85 (84), and lipase 239 (1952) Vitals stable Pain and symptoms much improved from admission Discussed options with patient and recommended surgical intervention with laparoscopic cholecystectomy to prevent future recurrences. She is agreeable to the plan Dr. Saba will be by to obtain consent Admission and Anticipated Discharge Date Admission Date: November 15, 2023 Subjective Patient feeling better today. Denies abdominal pain, nausea/vomiting. Has questions regarding her plan of care Physical Exam Physical Exam: awake/alert, no distress Gastrointestinal (Abdomen): Percussion/Palpation: abdomen soft; abdomen nontender Results & Data Vital Signs (Past 12 Hours) Vital Signs Temp Pulse Resp BP Pulse Ox O2 Del Method 11/16/23 07:38 97.7 F 95 H 18 175/98 H 98 Room Air 11/16/23 03:28 88 162/85 H 95 Room Air PG Care Time/CCT Total # of Minutes Spent Total Time Spent with Patient: Total time spent is greater than 50% in coordination of care (as documented) at patient's floor/unit and/or counseling patient: Coding Level of Care Code 12733 SUB INP/OBS CARE 25MIN Diagnoses Gallstone pancreatitis K85.10
[2023-11-16] MEDS ORDERED: ATROPINE SULFATE 0.1 MG/ML 10ML SYR IV PRN (14:37)
[2023-11-16] MEDS ORDERED: PROMETHAZINE HCL 6.25 MG in SODIUM CHLORIDE 0.9% 50 ML IV PRN (14:37)
[2023-11-16] MEDS ORDERED: ONDANSETRON INJ 2 MG/ML 2 ML VIAL IV PRN (14:37)
[2023-11-16] MEDS ORDERED: HYDROmorphone INJ 1 MG/ML SYRINGE IV PRN (14:37)
[2023-11-16] MEDS ORDERED: ePHEDrine sulfate 50 MG/ML AMP IV PRN (14:37)
--- NOTE | 2023-11-16 14:42 | Anesthesiology Consultation ---
Date of Service November 16, 2023 Assessment & Plan (1) Encounter for pre-operative examination: Chart Review Chart Review: Acceptable Risk for Surgery and Patient NOT seen in Pre Admission Testing Consults Requested none History Surgery Operation Date: 11/16/23 07:45 Proposed Procedures p Laparoscopic Cholecystectomy - Kiran Saba, Height/Weight Height: 5 ft 3 in Weight: 134.717 kg Allergies Allergy/AdvReac Type Severity Reaction Status Date / Time fluconazole [From Diflucan] Allergy Unknown swelling Verified 11/15/23 19:22 ibuprofen Allergy Unknown swelling Verified 11/15/23 19:22 Medications Home Medications Medication Instructions Recorded Confirmed Last Taken multivitamin 1 tab PO DAILY 05/01/20 11/15/23 Unknown acetaminophen 500 mg tablet 1,000 mg PO QID PRN Fever Or Pain 10/29/23 11/15/23 Unknown (Tylenol Extra Strength) L.acid,par,plant,rham-B.anim,bif,brev,inf,long 1 cap PO DAILY 11/15/23 11/15/23 Unknown 30 billion cell capsule (Probiotic Digestive Health) diphenhydramine 25 1 tab PO HS PRN Sleep 11/15/23 11/15/23 Unknown mg-acetaminophen 500 mg tablet (Tylenol PM Extra Strength) esomeprazole magnesium 20 mg 20 mg PO BID PRN Heartburn 11/15/23 11/15/23 Unknown capsule,delayed release (Nexium) Active Medications Generic Name Dose Route Start Last Admin Trade Name Freq PRN Reason Stop Dose Admin Sodium Chloride 1,000 mls @ 60 mls/hr 11/15/23 23:30 11/15/23 22:01 Nss IV 11/16/23 16:09 60 mls/hr .[id number] GENIE Administration Pantoprazole Sodium 40 mg/ 10 mls @ 5 mls/min 11/16/23 11:00 11/16/23 11:33 Syringe IV 12/16/23 10:59 5 mls/min DAILY@1100 GENIE Administration Piperacillin Sod/Tazobactam Sod 4.5 gm in 100 mls @ 25 mls/hr 11/16/23 02:00 11/16/23 11:34 Zosyn IV 11/26/23 01:59 25 mls/hr Q8H GENIE Administration Protocol Morphine Sulfate 2 mg 11/15/23 21:36 11/16/23 03:27 Morphine Sulfate 2 Mg/Ml Carp IV 11/29/23 21:35 2 mg Q3H PRN Administration Moderate Pain (Scale 4, 5, 6) Past Medical History Medical History (Updated 11/16/23 @ 14:42 by Venkat Heredia MD) Encounter for pre-operative examination GERD (gastroesophageal reflux disease) Obesity Sleep apnea resolved after surgery Vulvar boil Past Family History Family History Mother Breast cancer, Onset Age: 70 stage 1 Hypertension Endometriosis Father Hypertension Grandmother (Maternal) Hypertension Multiple myeloma Grandfather (Maternal) Melanoma Lymphoma Hypertension Grandmother (Paternal) Diabetes Denies family history of Ovarian cancer Prostate cancer Colorectal cancer Past Surgical History Surgical History H/O gastric sleeve Hx of tonsillectomy H/O wisdom tooth extraction Social History Smoking Status: Never smoker Do You Dip or Chew Tobacco: No Hx Alcohol Use: No Hx Substance Use: No substance use type: does not use Physical Exam Vital Signs Last Vital Signs Temp 36.5 C 11/16/23 07:38 Pulse 95 H 11/16/23 07:38 Resp 18 11/16/23 07:38 BP 175/98 H 11/16/23 07:38 Pulse Ox 98 11/16/23 07:38 O2 Del Method Room Air 11/16/23 07:38 Testing Laboratory Results 11/16/23 06:37 11/16/23 06:37 PT 10.3 Seconds (9.0-12.0) 11/15/23 14:30 INR 0.9 (0.9-1.1) 11/15/23 14:30 APTT 32 Seconds (21-31) H 11/15/23 14:30 Urine Color Yellow 11/15/23 15:14 Urine Appearance Clear (Clear) 11/15/23 15:14 Urine pH 6.0 (4.5-7.5) 11/15/23 15:14 Ur Specific [place] 1.014 (1.000-1.030) 11/15/23 15:14 Urine Protein Negative (Negative) 11/15/23 15:14 Urine Glucose (UA) Negative (Negative) 11/15/23 15:14 Urine Ketones Trace (Negative) H 11/15/23 15:14 Urine Nitrite Negative (Negative) 11/15/23 15:14 Ur Leukocyte Esterase 3+ (Negative) H 11/15/23 15:14 Urine WBC (Auto) 0-5 /hpf (0-5) 11/15/23 15:14 Urine RBC (Auto) 3-5 /hpf (0-2) H 11/15/23 15:14 U Hyaline Cast (Auto) 0-2 /lpf (0-2) 11/15/23 15:14 U Epithel Cells (Auto) 6-10 /hpf (0-2) H 11/15/23 15:14 Urine Bacteria (Auto) None Seen (None Seen) 11/15/23 15:14 Electrocardiogram Date: 11/15/23 DICTATED BY: Ady Castrejon MD Test Reason : Blood Pressure : */* mmHG Vent. Rate : 61 BPM Atrial Rate : 61 BPM P-R Int : 144 ms QRS Dur : 90 ms QT Int : 406 ms P-R-T Axes : -11 -11 -11 degrees QTcB Int : 408 ms Normal sinus rhythm Cannot rule out Anterior infarct , age undetermined Abnormal ECG No previous ECGs available Confirmed by Ady Castrejon ([id number]) on 11/15/2023 4:54:15 PM
[2023-11-16] MEDS ORDERED: MIDAZOLAM HCL 1 MG/ML 2ML VIAL ONE (14:56)
[2023-11-16] MEDS ORDERED: ONDANSETRON INJ 2 MG/ML 2 ML VIAL ONE (14:56)
[2023-11-16] MEDS ORDERED: ROCURONIUM BROMIDE 10 MG/ML 5 ML VIAL IV ONE (14:56)
[2023-11-16] MEDS ORDERED: PROPOFOL IV EMULSION 10 MG/ML 20 ML VIAL IV ONE (14:56)
[2023-11-16] MEDS ORDERED: fentaNYL citrate PF 100 MCG/2 ML VIAL ONE ×2 (14:56→15:48)
[2023-11-16] MEDS ORDERED: LIDOCAINE 2% 2 ML VIAL/AMP(20MG/ML) INFIL ONE (14:56)
[2023-11-16] MEDS ORDERED: DEXAMETHASONE SOD INJ 4 MG/ML VIAL ONE (14:56)
[2023-11-16] MEDS ORDERED: ACETAMINOPHEN 1000 MG/100 ML IV IV ONE (15:06)
--- NOTE | 2023-11-16 15:06 | History & Physical Bridge Note ---
Date of Service November 16, 2023 History & Physical Bridge Note I have examined the patient, reviewed the History & Physical and in the interval since the performance of the History & Physical I have noted the following changes of clinical significance: no changes noted pt feeling better. LFT's dropped. tbili normal. pancreatic enzymes improved. disucssed options/risks ( bleeding/infection/injury to an organ/dvt/pe/mi/cva etc...) questions answered. will proceed today with magdalena marino. pt agrees.
[2023-11-16] MEDS: BUPIVACAINE/EPINEPHRINE 0.5% MPF 1:200,000 30 ML VIAL ONE (16:24)
[2023-11-16] MEDS ORDERED: SUGAMMADEX SODIUM 200 MG/2 ML VIAL IV ONE (16:26)
[2023-11-16] MEDS ORDERED: HYDROmorphone INJ 2 MG/ML SYR/VIAL ONE (16:35)
--- NOTE | 2023-11-16 16:36 | Operative Report ---
PG Post Operative Report Pre & Post Diagnosis Operation Date: 11/16/23 07:45 Pre-Op Diagnosis: Gallstone Pancreatitis Post-Op Diagnosis: Gallstone Pancreatitis I identified the patient and participated in the time-out.: Yes Procedure Operation Date: 11/16/23 07:45 Actual Procedures p Laparoscopic Cholecystectomy(Not Applicable) - Kiran Saba DO Surgeon Kiran Saba DO Circuit Court Judge yakov Medina Estimated Blood Loss 5 Findings Consistent with Post-Op Diagnosis Specimens gallbladder Description of Procedure After informed consent was obtained the patient was taken to the operating room and placed in the supine position. After successful intubation the abdomen was sterilely prepped and draped in usual fashion. A periumbilical incision was made with an 11 blade scalpel and carried down through the soft tissue using electrocautery. The anterior rectus fascia was opened using electrocautery and 2 #0 Vicryl stay sutures were placed. The peritoneum was elevated with hemostats and incised under direct vision using Metzenbaum scissors. A finger sweep was performed and a 12 mm [place] trocar was placed. The abdomen was insufflated to 18 mmHg. The laparoscope was inserted and the abdomen was examined in 360. No gross abnormalities were identified. There was evidence of a prior sleeve gastrectomy. A subxiphoid 5 mm port and 2 right upper quadrant 5 mm ports were placed under direct vision. The patient was placed in a reverse Trendelenburg position and slightly airplaned to the left. The gallbladder was grasped and elevated superiorly and laterally. A small hole was made in the gallbladder during this process releasing a small amount of bile into the right upper quadrant. This was immediately suctioned and irrigated out. A [place] dissector was used to take down adhesions around the neck of the gallbladder. The cystic duct was identified and skeletonized. It was clipped twice proximally and once distally and transected using a laparoscopic scissor. In similar fashion the cystic artery was identified and skeletonized clipped and divided. The gallbladder was removed from the gallbladder fossa with electrocautery. It was placed into an Endo Catch bag. Thorough irrigation was performed. At the end of the procedure there was adequate hemostasis and no evidence of any bile leaks. A final look around the abdomen showed no other abnormalities. The gallbladder and trochars were all removed and the abdomen was desufflated. The fascia of the camera port was closed using 0 Vicryl in a [id number] fashion. All the wounds were irrigated and closed using 4-0 Monocryl. Marcaine was injected around them for postoperative analgesia and skin glue used as a dressing. The patient was awaken extubated and transferred to recovery in stable condition. My physician's patient care assistant was present throughout the entire case... helped with prepping the patient. With exposure for trocar placement, as well as retracted the gallbladder throughout the case and also assisted with wound closure and dressing placement. I attest to the content of the Intraoperative Record and any orders documented therein. Any exceptions are noted below.
[2023-11-16] MEDS: fentaNYL citrate PF 100 MCG/2 ML VIAL IV PRN (16:55)
[2023-11-16] MEDS ORDERED: ACETAMINOPHEN 325 MG TAB PO PRN (17:34)
--- NOTE | 2023-11-16 17:48 | Anesthesiology Progress Note ---
Date of Service November 16, 2023 Anesthesia Post Procedure Vital Signs Vital Signs: Temp Pulse Pulse Resp BP Pulse Ox O2 Del Method 11/16/23 17:35 98.6 F 94 H 17 156/95 H 92 Nasal Cannula 11/16/23 17:10 99 H 13 181/85 H 92 Oxymask 11/16/23 17:00 104 H 20 174/99 H 92 Oxymask 11/16/23 16:50 99 H 15 176/100 H 92 Oxymask 11/16/23 16:40 98.6 F 100 H 12 170/97 H 92 Oxymask 11/16/23 15:00 98.6 F 96 H 20 157/101 H 97 Room Air 11/16/23 14:43 97.7 F 18 L 18 156/90 H 93 Room Air 11/16/23 07:38 97.7 F 95 H 18 175/98 H 98 Room Air 11/16/23 03:28 88 162/85 H 95 Room Air 11/15/23 22:07 98.6 F 97 H 20 178/113 H 95 Room Air 11/15/23 20:40 86 17 150/93 H 98 Room Air O2 Flow Rate 11/16/23 17:35 3 11/16/23 17:10 3 11/16/23 17:00 6 11/16/23 16:50 10 11/16/23 16:40 10 11/16/23 15:00 11/16/23 14:43 11/16/23 07:38 11/16/23 03:28 11/15/23 22:07 11/15/23 20:40 Pain Intensity Upper Abdomen: Pain Intensity: 6 Transfer of Care Handoff Completed per policy Notes Mental Status: alert / awake / arousable and participated in evaluation Patient Amnestic to Procedure: Yes Nausea / Vomiting: adequately controlled Pain: adequately controlled Airway Patency, RR, SpO2: stable & adequate BP & HR: stable & adequate Hydration State: stable & adequate Anesthetic Complications: no major complications apparent and Pt Satisfied with anesthetic care
[2023-11-16 19:14] VITALS: RESP 18
[2023-11-16] MEDS: LACTATED RINGER'S 1,000 ML IV SCH (21:46)
[2023-11-16] MEDS: ONDANSETRON INJ 2 MG/ML 2 ML VIAL IV PRN (21:46)
[2023-11-17] MEDS: oxyCODONE HCL IR 5 MG TAB (IMMEDIATE RELEASE) PO PRN ×2 (02:30→09:10)
[2023-11-17 07:06] LABS: Basophils # (auto) 0.02 K/uL (0.00-0.20); Basophils % (auto) 0.2 %; Hematocrit (blood only) 38.5 % (37.0-47.0); Hemoglobin 12.8 g/dl (12.0-16.0); Immature Granulocytes # (auto) 0.08 K/uL (0.01-0.20); Immature Granulocytes % (auto) 0.6 %; Lymphocytes # (auto) 1.08 K/uL (1.20-3.40); Lymphocytes % (auto) 8.5 %; Mean Corpuscular Hemoglobin 28.6 pg (25.0-34.0); Mean Corpuscular Hgb Conc 33.2 g/dL (32.0-36.0); Mean Corpuscular Volume 86.1 fL (80.0-100.0); Mean Platelet Volume 10.6 fL (9.4-12.4); Monocytes # (auto) 0.57 K/uL (0.11-0.59); Monocytes % (auto) 4.5 %; Neutrophils # (auto) 10.91 K/uL (1.40-6.50); Neutrophils % (auto) 86.2 %; Platelet Count 227 K/uL (130-400); RDW Coefficient of Variation 13.4 % (11.5-14.5); RDW Standard Deviation 42.4 fL (36.4-46.3); Red Blood Count 4.47 M/uL (4.20-5.40); White Blood Count 12.66 K/ul (4.8-10.8)
[2023-11-17 07:31] VITALS: TEMP 98.8; O2SAT 95
[2023-11-17 07:43] LABS: Albumin Globulin Ratio 1.6 (0.9-2); BUN Creatinine Ratio 15.4 (10-20); Bilirubin,Total 0.7 mg/dl (0.2-1.0); Calcium 8.9 mg/dl (8.6-10.3); Creatinine Clr Calc Pharmacy 178.2 ml/min; Globulin 2.5 gm/dl (2.5-4.0); Magnesium 1.9 mg/dl (1.7-2.4); Potassium 4.3 mmol/L (3.5-5.1); Total Protein 6.5 gm/dl (6.0-8.3)
--- NOTE | 2023-11-17 07:59 | Surgery Progress Note ---
Date of Service November 17, 2023 Assessment & Plan (1) Gallstone pancreatitis: Plan: POD#1 lap ned for gallstone pancreatitis WBC 12, Hbg 12, LFTs downtrending TB 0.7, AST 72, ALT 134, Alkp 82, lipase 37 Will order a dose of IV APAP for her headache Advance diet as tolerate to regular If pain controlled, diet tolerated, pt stable she may be discharged to home today F/u in the office within 2 weeks for a post op check as above. doing well. ok for d/c from my standpoint. instructions given. f/u 1 week Admission and Anticipated Discharge Date Admission Date: November 15, 2023 Subjective Pt reports feeling okay this AM. Some mild nausea and a headache. But pain is otherwise manageable and no other complaints. Physical Exam Physical Exam: awake, alert, no distress, has cool wash cloth over forehead for headache relief Gastrointestinal (Abdomen): Inspection/Auscultation: + abdominal surgical incision (c/d/i with dermabond, some mild ecchymosis of GB extraction site); abdomen not distended Percussion/Palpation: + abdomen tender (expected julio incisional discomfort to palpation ) and abdomen soft Results & Data Vital Signs (Past 12 Hours) Vital Signs Temp Pulse Resp BP BP Pulse Ox O2 Del Method 11/17/23 07:29 98.8 F 100 H 18 151/78 H 95 Nasal Cannula 11/17/23 03:00 98.1 F 99 H 18 135/88 97 Nasal Cannula 11/17/23 00:09 Nasal Cannula 11/16/23 23:18 97.9 F 96 H 18 149/94 H 94 Nasal Cannula 11/16/23 20:36 98.2 F 93 H 18 142/84 H 96 Nasal Cannula O2 Flow Rate 11/17/23 07:29 2 11/17/23 03:00 3 11/17/23 00:09 3 11/16/23 23:18 3 11/16/23 20:36 3.0 PG Care Time/CCT Total # of Minutes Spent Total Time Spent with Patient: Total time spent is greater than 50% in coordination of care (as documented) at patient's floor/unit and/or counseling patient: Coding Level of Care Code 48424 Post Operative Follow-Up Diagnoses Gallstone pancreatitis K85.10
[2023-11-17] MEDS: ACETAMINOPHEN 1,000 MG/100 ML VIAL IV STA (08:14)
[2023-11-17] MEDS: KETOROLAC 30 MG/ML VIAL IV ONE (10:36)
[2023-11-17 14:14] VITALS: BP 142/84; PULSE 99
--- NOTE | 2023-11-17 18:07 | Discharge Summary ---
Discharge Summary Date of Service November 17, 2023 Principal Dx & Hospital Course #1 = Principal Diagnosis (1) Gallstone pancreatitis: Presented with epigastric pain with increased gas and belching. PMH of gastric sleeve. - Elevated LFTs and lipase on admission significant for the following: Total bilirubin 1.6, AST 170, ALT 143, Lipase 1952 - Repeat LFTs and lipase downtrended: Total bilirubin 1.0, AST 120, ALT 163, lipase 239 - LFTs and lipase on day of discharge: Total bilirubin 0.7, AST 72, ALT 134, lipase 37 - KUB with nonobstructive bowel gas pattern - Gallbladder ultrasound is equivocal for acute cholecystitis, with recommendation for ordering a HIDA scan - HIDA revealed normal contractile response of the gallbladder, normal biliary imaging study - General surgery consulted > Lap ned on 11/[address] Saba > Follow-up with general surgery outpatient in 2 weeks postop - Well tolerated transition to regular diet postop - Leukocytosis on day of discharge likely reactionary/inflammatory from surgical intervention. Afebrile, no signs of infection. - Treated with Zosyn while hospitalized, however operative report did not note gangrenous gallbladder and surgery did not recommend oral antibiotics on discharge (2) GERD (gastroesophageal reflux disease): Takes Nexium 20 mg twice daily as needed at home Protonix 40 mg daily while hospitalized (3) H/O gastric sleeve: Plan Updated multiple family members at bedside VTE PPx: SCDs CODE STATUS: Full code Admission HPI Per Admitting Provider The patient is a 48-year-old female with a past medical history including dysfunctional uterine bleeding, depression with anxiety, thyroid cyst, arthritis, obesity, anxiety, and history of gastric sleeve at [facility]. She presents to the emergency department with symptoms as noted above. Upon questioning, she reports that her urine has been more concentrated, and that her stool became home demonstrator in color this morning. She reports that in the emergency department, she has not required pain medications, and her pain has resolved at this time. She had no associated nausea or vomiting. Discharge Exam General: No acute distress, nondiaphoretic, well-developed, well-nourished. Skin: The skin was without rashes, erythema, edema, or bruising. Cardiac: Regular rate and rhythm without murmurs gallops or rubs. Pulm: Clear to auscultation bilaterally without wheezes, rales or rhonchi. No respiratory distress. 98% on room air. Abdominal: Soft, nontender, nondistended. Bowel sounds present. Surgical sites clean/dry/covered in Dermabond. Ecchymosis noted around umbilicus. Neuro: A&O x3. No focal neurological deficits. Discharge Plan Discharge Items Patient Disposition: Home - Self-Care Reason For Visit: GALLSTONE PANCREATITIS Discharge Diagnosis: laparoscopic cholecystectomy Activity: Per Instructions section Lifting: No more than 10 pounds Bathing Comment: may shower; no soaking in tubs/pools x 2 weeks Exercise/Sports: Wait until after follow-up appointment Driving/Machine Use: no driving while on narcotics for pain Non-emergency contact: Surgeon Call non-emergency contact if: you have any medication questions, your pain is not controlled, you have a fever, your temperature is above 101.5, your wound has increased redness, your wound has increased drainage and your wound pain has increased Follow-up/Referrals: Kiran Saba DO [Surgeon] - 12/08/23 9:00 am (please call to schedule follow up in clinic within 2 weeks) Bushra Ortega MD [Primary Care Provider] - 11/22/23 9:25 am (Follow-up in 1-2 weeks) Diet: Regular Addtl Attending Provider Instructions: Ms. Gupta, You were admitted to the hospital because of gallstone pancreatitis. This is what caused your belly pain, gas, belching. You had a laparoscopic cholecystectomy (gallbladder removed) with Dr. Saba on 11/16/2023. Your labs have downtrended/returned to normal. The headache you experienced earlier was likely multifactorial between anesthesia, caffeine withdrawal, and from being without food for a period of time. This should improve throughout the day/tomorrow, you can continue to take Tylenol as needed for the headache. Upon discharge from the hospital: * You can continue a regular diet. * Please follow-up with general surgery in 2 weeks. * Take ibuprofen/Tylenol as needed for mild postoperative pain. * Recommend lifting limitation of 10 pounds for the next 2 weeks. * Continue your regular home medications as prescribed. Please contact your surgeon's office if you experience any of the following: Increased redness/drainage around your surgical sites, difficulty tolerating your diet, increased belly pain, any other questions or concerns. Please return to the hospital if you experience any of the following: Fever of 100.5 F or higher, shortness of breath, difficulty breathing, chest pain, lightheadedness, dizziness, confusion, or passing out. It was a pleasure taking care of you while you were in the hospital, Alysia Morton PA-C Addtl Stack Matcher Provider Instructions: You have skin glue over your incisions called dermabond. you may shower with this on. It will tend to dissolve and fall off within a couple weeks. Do not pick at the skin glue You may purchase Tylenol and/or Ibuprofen over the counter if needed for additional pain control over the next few days. Take per manufacturers instructions Pending Studies at Discharge: Yes Studies:: surgical pathology Stand-Alone Forms: [facility], [facility], Smoking Cessation Medications and DC Order Prescriptions: Continued multivitamin Tablet 1 tab PO DAILY acetaminophen [Tylenol Extra Strength] 500 mg tablet 1,000 mg PO QID PRN (Reason: Fever Or Pain) esomeprazole magnesium [Nexium] 20 mg Capsule,Delayed Release(Dr/Ec) 20 mg PO BID PRN (Reason: Heartburn) Probiotic Digestive Health 30 billion cell Capsule 1 cap PO DAILY diphenhydramine-acetaminophen [Tylenol PM Extra Strength] 25-500 mg Tablet 1 tab PO HS PRN (Reason: Sleep) Discharge Orders: Discharge Order (Routine); Ordered 11/17/23 Ordered By: Alysia Wilkerson/Other Patient Handouts: Cholecystectomy Dc Admission Data Admit Date/Time: 11/15/23 20:15 Attending Provider: Twan Delgado Admit Provider: Anthony Villanueva Primary Care Provider: Bushra Ortega Other Providers: Anthony Villanueva; Kiran Saba Other Interventions: Discharge Summary Assessment (RN) Last Done: 11/17/23 15:17 Hospital Stay Data Consultations 11/15/23 18:53 Consult General Surgery Routine ED Decision to Admit Stat Procedures Performed Operation Date: 11/16/23 07:45 Actual Procedures p Laparoscopic Cholecystectomy(Not Applicable) - Kiran Saba, Diagnostic Imagining Performed 11/15/23 16:07 US gallbladder Stat Pending Results Patient Have Any Pending Studies at Discharge: Yes Discharge Instructions Given to Patient (Per Discharging Provider) Ms. Gupta, You were admitted to the hospital because of gallstone pancreatitis. This is what caused your belly pain, gas, belching. You had a laparoscopic cholecystectomy (gallbladder removed) with Dr. Saba on 11/16/2023. Your labs have downtrended/returned to normal. The headache you experienced earlier was likely multifactorial between anesthesia, caffeine withdrawal, and from being without food for a period of time. This should improve throughout the day/tomorrow, you can continue to take Tylenol as needed for the headache. Upon discharge from the hospital: * You can continue a regular diet. * Please follow-up with general surgery in 2 weeks. * Take ibuprofen/Tylenol as needed for mild postoperative pain. * Recommend lifting limitation of 10 pounds for the next 2 weeks. * Continue your regular home medications as prescribed. Please contact your surgeon's office if you experience any of the following: Increased redness/drainage around your surgical sites, difficulty tolerating your diet, increased belly pain, any other questions or concerns. Please return to the hospital if you experience any of the following: Fever of 100.5 F or higher, shortness of breath, difficulty breathing, chest pain, lightheadedness, dizziness, confusion, or passing out. It was a pleasure taking care of you while you were in the hospital, Alysia Morton PA-C Total Time Total Time Spent Total Time Spent (In Minutes): Greater than 30 minutes spent completing this discharge process including direct patient care, medication reconciliation, documentation, review of labs and images, and coordination of care. Coding Level of Care Code 39748 INP/OBS DISCH >30 MIN Diagnoses Gallstone pancreatitis K85.10 GERD (gastroesophageal reflux disease) K21.9 H/O gastric sleeve Z90.3
== END 2023-11-17 15:33 | disposition home or self-care (01) | DRG 418 ==
LOC: ED 13:52 → SUATTDRO 20:15 → 3N 20:15